=== PATIENT | female | born 1990 | race Hispanic/Latino ===

== ENCOUNTER 2018-10-29 19:22 | Day surgery (SDC) | payer BC ==
[2018-10-29 19:47] VITALS: BMI 25.8
[2018-10-29 20:13] LABS: Amnisure Test No Membranes Rupture (No Rupture)
[2018-10-29 20:14] LABS: Amnisure Internal Control QC ACCEPTABLE (ACCEPTABLE)
--- NOTE | 2018-10-29 20:25 | PDOC.LDHP ---
Labor and Delivery H&P Chief complaint: loss of fluid HPI: 28 y/o at 30w5d, patient of Lisa Diego, presents with ?SROM this evening. Denies VB, ctx or decreased FM. Has had constant low back pain for weeks and some pelvic pressure today. ROS neg for HEENT, CV, pulm, GI, , neuro, psych, skin, musculoskeletal, or constitutional symptoms other than mentioned above. OB History Details: 1 prior term Current complications: none Current medications: pre-jadiel vitamins Previous surgical history: none Allergies/Adverse Reactions: Allergies Allergy/AdvReac Type Severity Reaction Status Date / Time No Known Allergies Allergy Unverified 10/29/18 19:46 Social history: none - Physical Exam Vital signs reviewed and normal: yes General: NAD, resting Lungs: nonlabored breathing Abdomen: gravid FHT: category 1 (135, mod variability, + accels, no decels) [place] contractions every: none - Vaginal Exam cm dilated: 1 (No pooling or valsalva) Effacement: 0% Station: -3 - Assessment 28 y/o at 30w5d with no e/o SROM or PTL. status reassuring with reactive NST. - Plan -: Has appt with Lisa Diego tomorrow. Advised to keep appointment and d/c home with precautions.
== END 2018-10-29 20:30 | disposition home health service (06) ==
LOC: L&D/OP 19:22
PROVIDERS: ATTEND Advanced Practice Midwife
DX: O26.893 Other specified pregnancy related conditions, third trimester (principal); N89.8 Other specified noninflammatory disorders of vagina; Z79.899 Other long term (current) drug therapy; Z3A.30 30 weeks gestation of pregnancy
CPT/HCPCS: 84112; 99283

== ENCOUNTER 2018-12-08 16:26 | Day surgery (SDC) | payer BC ==
[2018-12-08 17:24] VITALS: BMI 29.8
[2018-12-08] MEDS ORDERED: diphenhydrAMINE 50 MG/ML VIAL IVP PRN (18:05)
[2018-12-08] MEDS: Lactated Ringer's 2,000 ML IV SCH ×2 (19:36→20:00)
[2018-12-08] MEDS: Metoclopramide HCl 10 MG/2 ML VIAL IVP PRN ×2 (19:36→20:00)
--- NOTE | 2018-12-09 07:59 | PRG ---
DATE OF SERVICE: 12/08/2018 PRIMARY OB: Yuly Diego CNM. CHIEF COMPLAINT: Headache, pelvic pain, and swelling. HISTORY OF PRESENT ILLNESS: The patient is a 28-year-old G4, P1 female, with an intrauterine at 36 weeks gestation, who is presenting to Labor and Delivery ER from work with complaints of headache, blurry vision, upper quadrant pain and swelling. The patient reports that she has a history of preeclampsia with her last and was concerned about what she was feeling and came for evaluation. The patient does have a history of migraines that she had been taking Imitrex prior to the for and has been on Fioricet during this . She reports that her headaches in the past have been resolved with Fioricet and with these headaches not resolving with Fioricet increased her worry. The patient also reports she was unable to see the computer screen well as it was very blurry. The patient denies fever. Denies hard uterine contractions, vaginal bleeding, or leakage of fluid. The patient reports that she has had swelling in her lower extremities that have worsened in the last few days. 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 The patient denies light sensitivity, sound sensitivity. She denies headache onset due to any foods. She reports sleeping well. The patient reports she is having lower back pain. PAST MEDICAL HISTORY: Migraines. PAST SURGICAL HISTORY: Negative. SOCIAL HISTORY: Denies drug, alcohol, or tobacco use. MEDICATIONS: 1. vitamins. 2. Fioricet. 3. Zoloft 25 mg daily. ALLERGIES: NO KNOWN DRUG ALLERGIES. PSYCHIATRIC HISTORY: Recent diagnosis of depressed mood. OB LABS: Blood type is A positive. Antibody screen is negative. Hepatitis B surface antigen is negative. HIV is negative in the first and third trimester. GC chlamydia is negative in the first trimester. She is rubella immune. Diabetes screen was 111. VDRL nonreactive in the third trimester and the first trimester. GBS results unavailable. REVIEW OF SYSTEMS: Per HPI. PHYSICAL EXAMINATION: VITAL SIGNS: Blood pressure 112/63, heart rate of 61, respiratory rate 18, saturating 98% on room air, temperature 98.5. GENERAL: She appears to be in no acute distress. She is alert, oriented, cooperative, and pleasant to interact with. HEAD: Normocephalic, atraumatic. LUNGS: Clear to auscultation bilaterally. HEART: Has regular rate and rhythm. ABDOMEN: Gravid, soft, nontender. EXTREMITIES: Nontender, nonedematous. GENITOURINARY: Vulva is without masses, lesions, or erythema. The patient does report she has some vaginal wall pain with palpation reproducing one of her chief complaints. She also is noted to have the cervix very posterior about 2 cm dilated with +1 station. PELVIC: The patient has reproducible pain with palpation of the SI joints. heart tracing performed for back pain and pelvic pain. Baseline is noted to be in the 130s with moderate long-term variability, positive 15 x 15 accelerations, no decelerations. She has occasional contractions on the monitor. ASSESSMENT AND PLAN: The patient is a 28-year-old female with a history of migraines and by history, the patient sounds like she is experiencing migraine, she has no evidence of hypertensive-related disorder as blood pressures are completely normal. We will be treating the patient with IV fluids and IV Reglan 10 mg q.30 minutes p.r.n. for headache x4 doses and Benadryl 25 mg IV q.hour x2 doses p.r.n. for headache. Fetus has a reactive NST and category 1 tracing and we will reassess. ADDENDUM: The patient after receiving 2 doses of Reglan and 1 dose of Benadryl and 2 L of IV fluid, the patient reports her headache has resolved and would like to go home. The patient has been given labor precautions and has an appointment with Ms. Yuly Diego in the near future, which she has been encouraged to keep. Job ID: [id number]
== END 2018-12-08 21:30 | disposition home health service (06) ==
LOC: L&D/OP 16:26
PROVIDERS: ATTEND Advanced Practice Midwife
DX: O99.89 Other specified diseases and conditions complicating pregnancy, childbirth and the puerperium (principal); R10.2 Pelvic and perineal pain; R51 Headache; H53.8 Other visual disturbances; F32.9 Major depressive disorder, single episode, unspecified; Z79.899 Other long term (current) drug therapy; Z3A.36 36 weeks gestation of pregnancy
CPT/HCPCS: 96360; 96361; 96375; 99283; J1200; J2765

== ENCOUNTER 2018-12-16 16:15 | Day surgery (SDC) | payer BC ==
[2018-12-16 16:21] VITALS: BMI 30.7
--- NOTE | 2018-12-17 04:16 | SS ---
DATE OF ADMISSION: 12/16/2018 DATE OF DISCHARGE: 12/16/2018 REGULAR PROVIDER: Yuly Diego CNM. EVALUATING PHYSICIAN: Asael Ruiz MD CHIEF COMPLAINT: Contractions at home. HISTORY OF PRESENT ILLNESS: Ms. Johnson is a 28-year-old , G3, P1, AB1 with an estimated date of confinement of 01/02/2019, who presents complaining of contractions at home every 7 to 10 minutes. She denies leakage of fluid or vaginal bleeding. Her care has been with Yuly Diego, and she has low intervention in labor. PAST OBSTETRICAL HISTORY: Includes one vaginal delivery induced at term for elevated blood pressure and one spontaneous miscarriage which did not require D and C. PAST MEDICAL HISTORY: Includes migraines and depression. PAST SURGICAL HISTORY: None. CURRENT MEDICATIONS: vitamins, Fioricet p.r.n., Zoloft, and iron. ALLERGIES: NO KNOWN ALLERGIES. SOCIAL HISTORY: She denies tobacco or alcohol use. FAMILY HISTORY: Unremarkable. REVIEW OF SYSTEMS: She denies nausea, vomiting, fever, chills, ruptured membranes, or vaginal bleeding. PHYSICAL EXAMINATION: VITAL SIGNS: In triage, her vital signs are stable. She is afebrile. GENERAL: She is pleasant and in no acute distress. ABDOMEN: Soft, nontender, and gravid. PELVIC EXAM: Her cervix is 2 cm dilated, 70% effaced with a vertex at the -1 station. heart rate tracing is stable with spontaneous accelerations. No decelerations were seen. Irregular contractions were seen every 2 to 6 minutes. These were mild to palpation. ASSESSMENT: 1. Thirty-seven week intrauterine . 2. Possible prodromal labor, no evidence of active labor at this time. PLAN: Patient will be dismissed to home. She was given complete labor instructions and will return here for ruptured membranes or regular contractions. She voices understanding of her discharge and is discharged home in good condition. Job ID: [id number]
== END 2018-12-16 17:00 | disposition home health service (06) ==
LOC: L&D/OP 16:15
PROVIDERS: ATTEND Obstetrics & Gynecology
DX: O47.1 False labor at or after 37 completed weeks of gestation (principal); O99.343 Other mental disorders complicating pregnancy, third trimester; F32.9 Major depressive disorder, single episode, unspecified; O99.89 Other specified diseases and conditions complicating pregnancy, childbirth and the puerperium; G43.909 Migraine, unspecified, not intractable, without status migrainosus; Z3A.37 37 weeks gestation of pregnancy; Z79.899 Other long term (current) drug therapy
CPT/HCPCS: 99282

== ENCOUNTER 2018-12-19 18:09 | Day surgery (SDC) | payer BC ==
[2018-12-19 19:14] VITALS: BMI 31.4
[2018-12-19 19:41] LABS: Amnisure Test No Membranes Rupture (No Rupture)
[2018-12-19 19:42] LABS: Amnisure Internal Control QC ACCEPTABLE (ACCEPTABLE)
[2018-12-19] MEDS ORDERED: Fioricet 325/50/40 mg Tablet PO PRN (20:32)
[2018-12-19 21:03] LABS: Bilirubin Negative (Negative); Blood, Urine Negative (Negative); Clarity CLEAR (Clear); Glucose, Urine (Dipstick) Negative (Negative); Leukocyte Negative (Negative); Nitrite Negative (Negative); Protein, Urine (Dipstick) 30 mg/dL (Neg-Trace); Specific Gravity, Urine 1.011 (1.002-1.036); Urobilinogen 0.2 mg/dL (0.2-1.0)
[2018-12-19 21:05] LABS: Hyaline Casts/LPF 4-6 HYALINE CAST LPF (0-3 Hyaline); Pathc Cast-AUWi Flag 1.22 (0-2.49); RBC/HPF None Seen HPF (0-3); Squamous Epithelial 0-3 HPF (0-3)
[2018-12-19 21:16] LABS: Bacteria/HPF 1+ HPF (None Seen)
--- NOTE | 2018-12-19 22:24 | PRG ---
DATE OF SERVICE: 12/19/2018 PRIMARY OB: Ms. Yuly Diego. CHIEF COMPLAINT: Abdominal pain and leakage of fluid and headache. HISTORY OF PRESENT ILLNESS: The patient is a 28-year-old G3, P1 female with an intrauterine at 38 weeks gestation who is presenting with leakage of fluid that she has noticed since this morning, that she reports as feeling more moist and having her panty liner wet through the day. She also reports that since about 3 p.m. this afternoon, her uterine contractions have become more noticeable and more intense. She reports that she is having strong and hard contractions a few times an hour. She reports that she feels some of her contraction pain in her back. During the contractions, she tends to feel most of the pain in her back. The patient denies vaginal bleeding. She denies any fever or fall. She does report a headache that she has. She reports chronic headaches and has been on Fioricet, but has been out of the house for the last week. She denies chest pain or shortness of breath. She has had some nausea, more so than usual the last couple of days and has felt somewhat under the weather. She denies diarrhea or constipation, but she does report her stools have been more loose. The patient reports a rash that was on her hands but it since dissipated. Denies hip problems, knee problems, or muscle weakness. Denies vaginal bleeding or leakage of fluid. She does report her urine is feeling heavy, which she feels when she has urinary tract infection. PAST MEDICAL HISTORY: Negative. PAST SURGICAL HISTORY: Negative. OBSTETRIC HISTORY: She had one term vaginal delivery. OB LABS: Unavailable at the time of dictation. ALLERGIES: NO KNOWN DRUG ALLERGIES. MEDICATIONS: vitamins. REVIEW OF SYSTEMS: Per HPI. PHYSICAL EXAMINATION: VITAL SIGNS: Blood pressure is 109/65, heart rate of 73, respiratory rate of 16, temperature 98.4, saturating 99% on room air. GENERAL: She appears to be in no acute distress. She is alert, oriented, cooperative, and pleasant to interact with. HEAD: Normocephalic, atraumatic. LUNGS: Clear to auscultation bilaterally. HEART: Has regular rate and rhythm. ABDOMEN: Soft and gravid and nontender to palpation. EXTREMITIES: Nontender, but are very edematous in her feet and painful to palpation. : 3, 75 and -2 station, which is unchanged from her visit yesterday in the clinic and also has remained unchanged after 2 hours of observation here in the Labor and Delivery. heart tracing baseline is noted to be in the 130s with moderate long-term variability positive 15 x 15 accelerations, no decelerations. Tocometer showing some irritability, but difficulty seeing any specific contraction pattern. LABORATORY DATA: Urinalysis was collected by cath specimen and was noted to be positive for 1+ bacteria, 4 to 6 white blood cells, no squamous cells, small ketones. ASSESSMENT AND PLAN: The patient is a 28-year-old G3, P1 female with an intrauterine at 38 weeks gestation who may be in latent labor or is having term contractions. The patient does have evidence of urinary tract infection for which we will be treating her with Keflex 500 mg to be taken 3 times a day for the next week. Fetus has a reactive NST and category 1 tracing. The patient has been given term labor precautions and instructions on taking her antibiotics for treatment of this urinary tract infection as directed. The patient has an appointment on January 01 with Ms. Yuly Diego. Job ID: [id number]
== END 2018-12-19 21:45 | disposition home or self-care (01) ==
LOC: L&D/OP 18:09
PROVIDERS: ATTEND Obstetrics & Gynecology
DX: O99.89 Other specified diseases and conditions complicating pregnancy, childbirth and the puerperium (principal); N89.8 Other specified noninflammatory disorders of vagina; R10.9 Unspecified abdominal pain; R51 Headache; M54.9 Dorsalgia, unspecified; O23.43 Unspecified infection of urinary tract in pregnancy, third trimester; Z3A.38 38 weeks gestation of pregnancy; Z79.899 Other long term (current) drug therapy
CPT/HCPCS: 51701; 81001; 84112; 99285

== ENCOUNTER 2018-12-26 17:07 | Inpatient (IN) | payer BC ==
[2018-12-26] MEDS ORDERED: Bupivacaine/Epinephrine 0.25% 30 ML VIAL ONE (18:00)
[2018-12-26 18:38] LABS: Amnisure Test No Membranes Rupture (No Rupture)
[2018-12-26 18:39] LABS: Amnisure Internal Control QC ACCEPTABLE (ACCEPTABLE)
[2018-12-26 18:43] VITALS: BMI 31.4
--- NOTE | 2018-12-26 18:44 | PDOC.LDHP ---
Labor and Delivery H&P Chief complaint: loss of fluid HPI: at 1545 the patient was laying down and water just came out. It was clear, no odor. She started having cramping after. She went to get her daugher then came home and showered. She called her to come to [facility] and came to the hospital. after her shower, per panties got moist. Current gestational age (weeks): 39 Due date: 01/02/19 Dating criteria: last menstrual period (and verifed by first trimester US at 8w4d) Grav: 4 Para: 1 OB History Details: SAB x 2 2011 7.10 female, full term. Current complications: other (depression and anxiety) Abnormal US findings: No Current medications: pre- vitamins, other (zoloft 50mg PO QD) Previous surgical history: none Allergies/Adverse Reactions: Allergies Allergy/AdvReac Type Severity Reaction Status Date / Time No Known Allergies Allergy Verified 12/08/18 17:17 Social history: none - Physical Exam Vital signs reviewed and normal: yes General: NAD Lungs: nonlabored breathing Abdomen: gravid Extremeties: trace edema FHT: category 1 [place] contractions every: 2-4 - Vaginal Exam cm dilated: 4 Effacement: 75% Station: -1 - OB Labs Blood type: A RH: positive Antibody Screen: negative HIV: negative RPR: negative HEPSAg: negative 1 hour GCT: negative GBS: negative Urine drug screen: negative Rubella: immune - Assessment A: Term patient r/o of membranes P: Amnisure Reg diet admit if ruptured.
--- NOTE | 2018-12-26 19:05 | PDOC.LDPN ---
Labor & Delivery Progress Note - Subjective Subjective: comfortable - Objective Vital signs reviewed and normal: yes General: other (Patient desires to stay for IOL despite not having ruptured membranes. ) Plan: other (admit for elective IOL at pt request. )
[2018-12-26] MEDS ORDERED: Ibuprofen 800 MG TAB PO PRN (19:12)
[2018-12-26] MEDS ORDERED: Ondansetron PF 4 MG/2 ML Vial IVP PRN (19:12)
[2018-12-26] MEDS ORDERED: Promethazine HCl 25 MG/ML VIAL IM PRN (19:12)
[2018-12-26] MEDS ORDERED: Methylergonovine 0.2 MG/ML VIAL IM PRN (19:12)
[2018-12-26] MEDS ORDERED: Lidocaine 1% (PF) 30 ML VIAL SC PRN (19:12)
[2018-12-26] MEDS ORDERED: HYDROcodone/Acetaminophen 5/325 mg Tablet PO PRN ×2 (19:12)
[2018-12-26] MEDS ORDERED: NS w/ Oxytocin 10 units 500 ML IV SCH (19:30)
[2018-12-26] MEDS: Lactated Ringer's 1,000 ML IV SCH (19:57)
[2018-12-26 21:36] LABS: Syphilis Antibody Nonreactive (Nonreactive); Syphilis Antibody Index 0.03 S/CO (<1.00 Non-Reactive)
[2018-12-26 21:40] LABS: Hemoglobin 12.7 g/dL (12.0-16.0); Mean Corpuscular HGB CONC 34.1 g/dL (32.0-36.0); Mean Corpuscular Hemoglobin 32.7 pg (27.0-31.0); Mean Corpuscular Volume 95.9 fL (78.0-98.0); Mean Platelet Volume 11.8 fL (7.4-10.4); Platelet Count 110 thou/uL (130-400); Red Blood Cell (RBC) Count 3.88 mill/uL (4.20-5.40); White Blood Cell (WBC) Count 8.4 thou/uL (4.8-10.8)
[2018-12-26 23:01] LABS: HBSAg Index 0.27 S/CO (0-0.99); Hep B Surf Ag Non-Reactive S/CO (NonReactive)
[2018-12-27] MEDS ORDERED: Butorphanol Tartrate 1 MG/ML VIAL SLOW IVP PRN (03:30)
[2018-12-27] MEDS ORDERED: Fentanyl 4 mcg/Bup 0.1% Cadd 100 ML ONE (05:16)
[2018-12-27] MEDS ORDERED: diphenhydrAMINE 50 MG/ML VIAL IVP PRN (06:02)
[2018-12-27] MEDS ORDERED: Eucerin (Mineral Oil/Petrolatum,White) 30 gm Jar TOP PRN (06:02)
[2018-12-27] MEDS ORDERED: Acetaminophen 325 MG TAB PO PRN (06:02)
[2018-12-27] MEDS ORDERED: Ondansetron PF 4 MG/2 ML Vial IVP PRN ×2 (06:02→11:34)
[2018-12-27] MEDS ORDERED: ePHEDrine/0.9% NaCl/PF SYRINGE 50 mg/10 ml SLOW IVP PRN (06:02)
[2018-12-27] MEDS ORDERED: Lactated Ringer's 500 ML IV PRN (06:02)
[2018-12-27] MEDS ORDERED: Promethazine HCl 25 MG/ML VIAL IM PRN (06:02)
[2018-12-27] MEDS ORDERED: Naloxone HCl 0.4 mg/ml Vial IVP PRN ×2 (06:02)
[2018-12-27] MEDS ORDERED: Communication Order-Pharmacy FS SCH (06:15)
[2018-12-27] MEDS ORDERED: Fentanyl 4 mcg/Bupivacaine 0.1% Cassette 100 ML EPIDURAL SCH (06:15)
[2018-12-27] MEDS ORDERED: NS w/ Oxytocin 10 units 500 ML ONE (07:31)
[2018-12-27] MEDS ORDERED: NS w/ Oxytocin 10 units 500 ML IV SCH (08:00)
[2018-12-27] MEDS: NS / Oxytocin 40 units/1000ml 1,000 ML IV PRN ×2 (08:25→09:24)
--- NOTE | 2018-12-27 08:33 | PDOC.OPDEL ---
OB Operative/Delivery Note Delivery Dr/Surgeon: Light Pre-Delivery Diagnosis: active labor, elective induction Procedure/Post Delivery Dx: spontaneous vaginal delivery Weeks gestation: 39 Anesthesia: epidural - Findings A Sex: female - 1 min: 8 - 5 min: 9 - Additional Findings/Plan Placenta delivered: spontaneous Repaired Obstetrical Laceration: none Estimated blood loss: 250mL Compilations/Other Findings: Retained membranes manually removed. Bleeding resolved. Post delivery plan: routine recovery
[2018-12-27] MEDS ORDERED: NS / Oxytocin 40 units/1000ml 1,000 ML IV SCH (11:34)
[2018-12-27] MEDS ORDERED: Methylergonovine 0.2 MG/ML VIAL IM PRN (11:34)
[2018-12-27] MEDS ORDERED: Bisacodyl 10 MG SUPP PR PRN (11:34)
[2018-12-27] MEDS ORDERED: Adacel (T-DAP) 0.5 ML SYRINGE IM ONE (11:34)
[2018-12-27] MEDS ORDERED: Benzocaine-Menthol 82.5 ML CAN TOP PRN (11:34)
[2018-12-27] MEDS ORDERED: Milk Of Magnesia 30 ML UDCUP PO PRN (11:34)
[2018-12-27] MEDS ORDERED: HYDROcodone/Acetaminophen 5/325 mg Tablet PO PRN (11:34)
[2018-12-27] MEDS ORDERED: Misoprostol 200 MCG TAB VAG PRN (11:34)
[2018-12-27] MEDS: Prenatal Vitamin 1 TAB PO SCH (13:06)
[2018-12-27] MEDS: Ibuprofen 800 MG TAB PO SCH ×2 (13:35→21:38)
[2018-12-27] MEDS: Ferrous Sulfate 325 MG TAB PO SCH (13:59)
[2018-12-27] MEDS: Lactated Ringer's 1,000 ML IV SCH (19:13)
[2018-12-27] MEDS: Docusate Calcium (SURFAK) 240 MG CAP PO SCH (21:38)
[2018-12-27] MEDS: HYDROcodone/Acetaminophen 5/325 mg Tablet PO PRN (23:07)
[2018-12-28] MEDS: Ibuprofen 800 MG TAB PO SCH ×2 (05:20→11:59)
--- NOTE | 2018-12-28 07:20 | PDOC.PP ---
Post Progress Note Post Day #: 1 Subjective: Doing well, not . Still with some pp bleeding but no clots PO intake tolerated: yes Flatus: yes Ambulation: yes Vital Signs (12 hours) Temp Pulse Resp BP BP Pulse Ox 12/28/18 05:00 98.1 F 78 16 109/55 L 12/27/18 23:00 97.9 F 80 16 118/59 L 12/27/18 20:00 98.0 F 65 16 107/61 99 Weight Weight 195 lb - Physical Examination General: NAD Cardiovascular: no m/r/g Respiratory: clear to auscultation bilaterally Abdominal: + bowel sounds, lochia, no distention, appropriately TTP Extremities: negative homans (B) Neurological: no gross focal deficits Psychiatric: A&Ox3, normal affect Result Diagrams: 12/26/18 20:34 Additional Labs: Post Labs Blood Type A POSITIVE 12/26/18 20:34 Hep Bs Antigen Non-Reactive S/CO (NonReactive) 12/26/18 20:34 (1) (spontaneous vaginal delivery) Code(s): O80 - ENCOUNTER FOR FULL-TERM UNCOMPLICATED DELIVERY Status: Acute - Assessment/Plan A/P: yesterday at 0800...doing well. Some PP VB but no clots. We will OBS today until 1500 and follow. If clots are passed, I askd her to please notify so we may perform a vaginal exam and/or sono. No HX lacerations. Possible home at 1500. Pamela hamlin requested for her comfort (patient request)
[2018-12-28] MEDS: Docusate Calcium (SURFAK) 240 MG CAP PO SCH (08:22)
[2018-12-28] MEDS: Prenatal Vitamin 1 TAB PO SCH (08:22)
[2018-12-28] MEDS: HYDROcodone/Acetaminophen 5/325 mg Tablet PO PRN (08:23)
[2018-12-28 08:54] VITALS: BP 122/61; TEMP 97.6
[2018-12-28] MEDS: Ferrous Sulfate 325 MG TAB PO SCH (11:16)
== END 2018-12-28 15:54 | disposition home or self-care (01) | DRG 807 ==
LOC: L&D/OP 17:07 → L&D 19:23 → 3SW 12-27 11:04
PROVIDERS: ADMIT Obstetrics & Gynecology; ATTEND Obstetrics & Gynecology
PROC: 10D17Z9 Manual Extraction of Products of Conception, Retained, Via Natural or Artificial Opening (ICD-10-PCS; principal; 2018-12-27)
PROC: 3E033VJ Introduction of Other Hormone into Peripheral Vein, Percutaneous Approach (ICD-10-PCS; 2018-12-27)
PROC: 10E0XZZ Delivery of Products of Conception, External Approach (ICD-10-PCS; 2018-12-27)
DX: O72.2 Delayed and secondary postpartum hemorrhage (principal); Z37.0 Single live birth; O99.344 Other mental disorders complicating childbirth; F41.8 Other specified anxiety disorders; Z79.899 Other long term (current) drug therapy
CPT/HCPCS: 36415; 51702; 84112; 85027; 86780; 86850; 86900; 86901; 87340; 99285; J0595; J1200; J2001; J2405